=== PATIENT | male | born 1965 | race African-American/Black ===

== ENCOUNTER 2016-07-19 16:45 | Inpatient (IN) | payer OTHER ==
[2016-07-19 17:27] VITALS: BMI 23.8
--- NOTE | 2016-07-19 17:50 | HP ---
CIWA Score - CIWA Score Nausea/Vomitin-Mild Nausea/No Vomiting Muscle Tremors: 4-Moderate,w/Arms Extend Anxiety: 4-Mod. Anxious/Guarded Agitation: 4-Moderately Restless Paroxysmal Sweats: 1-Minimal Palms Moist Orientation: 1-Uncertain about Date Tacttile Disturbances: 0-None Auditory Disturbances: 1-Very Mild Visual Disturbances: 1-Very Mild Sensitivity Headache: 0-None Present CIWA-Ar Total Score: 17 Admission ROS BHS - HPI Chief Complaint: 50 years old male with long history of alcohol nicotine dependence prediabetic has schizophrenia is admitted to detox Allergies/Adverse Reactions: Allergies Allergy/AdvReac Type Severity Reaction Status Date / Time haloperidol [From Haldol] Allergy Intermediate Verified 07/19/16 17:27 haloperidol lactate Allergy Intermediate Verified 07/19/16 17:27 [From Haldol] trazodone AdvReac Verified 07/19/16 17:27 History of Present Illness: withdrawal sx Exam Limitations: No Limitations - Ebola screening Have you traveled outside of the country in the last 21 days: No Have you had contact with anyone from an Ebola affected area: No Have you been sick,other than usual withdrawal symptoms: No Do you have a fever: No - Review of Systems Constitutional: Chills, Loss of Appetite, Changes in sleep, Unexplained wgt Loss EENT: reports: No Symptoms Reported Respiratory: reports: No Symptoms reported Cardiac: reports: No Symptoms Reported GI: reports: Constipated, Nausea, Poor Appetite, Poor Fluid Intake, Abdominal cramping : reports: No Symptoms Reported Musculoskeletal: reports: No Symptoms Reported Integumentary: reports: No Symptoms Reported Neuro: reports: Tremors Endocrine: reports: No Symptoms Reported Hematology: reports: No Symptoms Reported Psychiatric: reports: Judgement Intact Other Systems: Reviewed and Negative Patient History - Patient Medical History Hx Anemia: No Hx Asthma: No Hx Chronic Obstructive Pulmonary Disease (COPD): No Hx Cancer: No Hx Cardiac Disorders: No Hx Congestive Heart Failure: No Hx Hypertension: No Hx Hypercholesterolemia: No Hx Pacemaker: No HX Cerebrovascular Accident: No Hx Seizures: No Hx Dementia: No Hx Diabetes: No Hx Gastrointestinal Disorders: No Hx Liver Disease: No Hx Genitourinary Disorders: No Hx Sexually Transmitted Disorders: No Hx Renal Disease (ESRD): No Hx Thyroid Disease: No Hx Human Immunodeficiency Virus (HIV): No Hx Hepatitis C: No Hx Depression: No Hx Suicide Attempt: Yes (tried to overdose 15 yrs ago.) Hx Bipolar Disorder: No Hx Schizophrenia: Yes (seroquel) - Patient Surgical History Past Surgical History: Yes Hx Neurologic Surgery: No Hx Cataract Extraction: No Hx Cardiac Surgery: No Hx Lung Surgery: No Hx Breast Surgery: No Hx Breast Biopsy: No Hx Abdominal Surgery: No Hx Appendectomy: No Hx Cholecystectomy: No Hx Genitourinary Surgery: No Hx Orthopedic Surgery: No Other Surgical History: left eye surgery age 7 Anesthesia Reaction: No - PPD History Previous Implant?: Yes Documented Results: Negative w/o proof Implanted On Prior R Admission?: Yes Date: 06/03/14 Results: 0mm PPD to be Administered?: Yes - Smoking Cessation Smoking history: Current every day smoker Have you smoked in the past 12 months: Yes Aproximately how many cigarettes per day: 5 Cigars Per Day: 0 Hx Chewing Tobacco Use: No Initiated information on smoking cessation: Yes 'Breaking Loose' booklet given: 07/19/16 - Substance & Tx. History Hx Alcohol Use: Yes Hx Substance Use: Yes Substance Use Type: Alcohol, Cocaine Hx Substance Use Treatment: Yes - Substances Abused Alcohol Route: Oral Frequency: Daily Amount used: 6PK MALT LIQUOR Age of first use: 15 Date of Last Use: 07/19/16 Crack Route: Smoking Frequency: Daily Amount used: $50-100 Age of first use: 19 Date of Last Use: 07/19/16 Family Disease History - Family Disease History Family Disease History: Diabetes: Father, Mother Admission Physical Exam BHS - Vital Signs Vital Signs: Vital Signs - 24 hr 07/19/16 17:26 Temperature 98.5 F Pulse Rate 73 Respiratory 20 Rate Blood Pressure 111/67 - Physical General Appearance: Yes: Appropriately Dressed, Mild Distress, Thin, Tremorous, Irritable, Sweating, Anxious HEENTM: Yes: Hearing grossly Normal, Normal ENT Inspection, Normocephalic, Normal Voice Respiratory: Yes: Chest Non-Tender, Lungs Clear, Normal Breath Sounds, No Respiratory Distress, No Accessory Muscle Use Neck: Yes: Supple, Trachea in good position Breast: Yes: Breasts Symetrical Cardiology: Yes: Regular Rhythm, Regular Rate, S1, S2 Abdominal: Yes: Non Tender, Soft Genitourinary: Yes: Within Normal Limits Back: Yes: Normal Inspection Musculoskeletal: Yes: full range of Motion, Gait Steady Extremities: Yes: Normal Range of Motion, Non-Tender, Tremors Neurological: Yes: Alert, Motor Strength 5/5, Normal Response, Depressed Affect Integumentary: Yes: Warm Lymphatic: Yes: Within Normal Limits - Diagnostic (1) Nicotine dependence Current Visit: Yes Status: Acute Qualifiers: Nicotine product type: cigarettes Substance use status: in withdrawal Qualified Code(s): F17.213 - Nicotine dependence, cigarettes, with withdrawal (2) Paranoid schizophrenia Current Visit: Yes Status: Suspected (3) Alcohol dependence with uncomplicated withdrawal Current Visit: Yes Status: Acute (4) Weight loss Current Visit: Yes Status: Acute Cleared for Admission [facility] - Detox or Rehab [facility] Level of Care: Medically Managed Detox Regimen/Protocol: Librium [facility] Breath Alcohol Content Breath Alcohol Content: 0 Urine Drug Screen - Results Drug Screen Negative: No Urine Drug Screen Results: ALEC-Cocaine
[2016-07-19] MEDS ORDERED: diphenhydrAMINE HCL 50 MG CAPSULE PO PRN (17:54)
[2016-07-19] MEDS ORDERED: IBUPROFEN 400 MG TABLET (FP) PO PRN (17:54)
[2016-07-19] MEDS ORDERED: chlordiazePOXIDE HCL 25 MG CAPSULE PO PRN (17:54)
[2016-07-19] MEDS ORDERED: hydrOXYzine PAMOATE 50 MG CAPSULE (FP) PO PRN (17:54)
[2016-07-19] MEDS ORDERED: MENTHOL/PHENOL 1 EACH UD MM PRN (17:54)
[2016-07-19] MEDS ORDERED: MAGNESIUM CITRATE 300 ML BOTTLE PO PRN (17:54)
[2016-07-19] MEDS ORDERED: LOPERAMIDE HCL 2 MG CAPSULE PO PRN (17:54)
[2016-07-19] MEDS ORDERED: MAGNESIUM HYDROX 2400MG/30ML ORAL SUSPENSION 30 ML CUP PO PRN (17:54)
[2016-07-19] MEDS ORDERED: NICOTINE POLACRILEX 2 MG GUM BC PRN (17:54)
[2016-07-19] MEDS ORDERED: guaiFENesin/D-METHORPHAN HB 10 ML UNIT-DOSE CUPS PO PRN (17:54)
[2016-07-19] MEDS ORDERED: P-EPHED 60MG/TRIPROLIDI 2.5MG TABLET PO PRN (17:54)
[2016-07-19] MEDS ORDERED: ACETAMINOPHEN 325 MG TABLET (FP) PO PRN (17:54)
[2016-07-19] MEDS ORDERED: MAG HYDROX/AL HYDROX/SIMETH 30 ML UNIT-DOSE CUP PO PRN (17:54)
[2016-07-19] MEDS ORDERED: chlordiazePOXIDE HCL 25 MG CAPSULE PO ONE (18:45)
--- NOTE | 2016-07-19 21:39 | PN ---
S Progress Note Note: ekg showed sinus bradycardia,57/min,inverted t in 2,3,avf,v4 to v6 no chest pain,no sob,no dizziness Vital Signs Temperature 98.5 F 07/19/16 17:26 Pulse Rate 73 07/19/16 17:26 Respiratory Rate 20 07/19/16 17:26 Blood Pressure 111/67 07/19/16 17:26 O2 Sat by Pulse Oximetry (%) to repeat ekg in am at 09.00 continue detox,close monitoring
[2016-07-19] MEDS: chlordiazePOXIDE HCL 25 MG CAPSULE PO SCH (22:28)
[2016-07-19] MEDS: THIAMINE HCL 100 MG TABLET (FP) PO SCH (22:28)
[2016-07-19 22:39] LABS: URINE APPEARANCE CLEAR; URINE BILIRUBIN NEGATIVE (NEGATIVE); URINE BLOOD NEGATIVE (NEGATIVE); URINE COLOR YELLOW; URINE GLUCOSE (UA) NEGATIVE (NEGATIVE); URINE KETONE TRACE (NEGATIVE); URINE NITRITE NEGATIVE (NEGATIVE); URINE UROBILINOGEN 2.0 E.U/dl E.U./dl (0.2-1.0)
[2016-07-19 22:40] LABS: URINE LEUK ESTERASE TRACE (NEGATIVE); URINE PROTEIN 1+ (NEGATIVE)
[2016-07-19 22:45] LABS: URINE BACTERIA RARE /hpf (NONE SEEN); URINE HYALINE CAST 6 /lpf; URINE MUCUS MANY; URINE RBC 1 /hpf (0-3); URINE WBC 20 /hpf (3-5)
[2016-07-20] MEDS: chlordiazePOXIDE HCL 25 MG CAPSULE PO SCH ×4 (05:19→22:11)
--- NOTE | 2016-07-20 09:23 | CONSULT ---
[facility] Psychiatric Consult - Data Date of interview: 07/20/16 Admission source: [facility] Identifying data: Readmission to [facility] for this 50 y/o AA male seeking detox treatment on for alcohol and cocaine (crack) dependence.Patient is single without children,homeless,unemployed and supported on SSI benefits. Substance Abuse History: - Smoking Cessation. Smoking history: Current every day smoker. Have you smoked in the past 12 months: Yes. Aproximately how many cigarettes per day: 5. Cigars Per Day: 0. Hx Chewing Tobacco Use: No. Initiated information on smoking cessation: Yes. 'Breaking Loose' booklet given : 07/19/16. - Substance & Tx. History. Hx Alcohol Use: Yes. Hx Substance Use : Yes. Substance Use Type: Alcohol, Cocaine. Hx Substance Use Treatment: Yes. - Substances Abused. Alcohol. Route: Oral. Frequency: Daily. Amount used: 6PK MALT LIQUOR. Age of first use: 15. Date of Last Use: 07/19/16. Crack. Route: Smoking. Frequency: Daily. Amount used: $50-100. Age of first use: 19. Date of Last Use: 07/19/16 Medical History: Patient endorses good general health.Noted report of eye surgery (at age 7). Psychiatric History: Patient is a hostile,suspicious and irritable historian." Why don't you look at my records ? Everything is in there.Will someone allow me get some sleep.I am tired of your stupid questions." Mr Smith does admit to a psychiatric history with multiple hospitalizations but he declines to expand on details.He states that he gets seroquel 50 mg twice a day.Additional information is collected from previous records.As per a new admission note from Dr Fox (07/30/14),this patient started seeing a psychiatrist by age 15 due to behavioral dyscontrol at school (a psychostimulant,ritalin,was utilized).First psychiatric hospitalization took place in 2001 at [facility] (a two-month retention) for a serious suicide attempt ([place]Mr Smith is also known to [facility] where he (at least in 2014) gets his outpatient psychiatric services.Diagnosed with paranoid schizophrenia.Noted history of Special Education (no information about grade achieved) and a family history of psychiatric illness (one aunt is reported to suffer from schizophrenia). Physical/Sexual Abuse/Trauma History: No history. Additional Comment: Urine Drug Screen Results: ALEC-Cocaine.Noted. Mental Status Exam - Mental Status Exam Alert and Oriented to: Time, Place, Person Cognitive Function: Grossly Intact Patient Appearance: Unkempt, Disheveled Mood: Angry, Hostile, Withdrawn, Irritable Affect: Mood Congruent Patient Behavior: Fatigued, Uncooperative, Guarded, Impulsive Speech Pattern: Clear Voice Loudness: Mildly Loud Thought Process: Disorganized Thought Disorder: Bizarre Hallucinations: Denies Suicidal Ideation: Denies Homicidal Ideation: Denies Insight/Judgement: Poor Sleep: Poorly, Difficulty falling asleep Appetite: Good (empty foodtray on bedside table) Muscle strength/Tone: Normal (no complaint of weakness) Gait/Station: Normal Psychiatric Findings - Problem List ([place] 1, 2,3) (1) Paranoid schizophrenia Current Visit: Yes Status: Chronic (2) Alcohol dependence with uncomplicated withdrawal Current Visit: Yes Status: Acute (3) Cocaine dependence Current Visit: Yes Status: Acute (4) Nicotine dependence Current Visit: Yes Status: Acute Qualifiers: Nicotine product type: cigarettes Substance use status: in withdrawal Qualified Code(s): F17.213 - Nicotine dependence, cigarettes, with withdrawal - Initial Treatment Plan Initial Treatment Plan: Psychoeducation is offered :patient is not receptive.Detoxification in progress.Medication : seroquel 50 mg po daily + 100 mg po hs.Brief discussion about side effects/benefits.Patient states that he is aware.Eager to get back on seroquel.Observation.
[2016-07-20 09:38] LABS: MCH 27.6 pg (25.7-33.7); MCHC 32.2 g/dl (32.0-35.9); MEAN CELL VOLUME 85.6 fl (80-96); MEAN PLT VOLUME 8.2 fl (7.5-11.1); PLATELET COUNT 234 K/MM3 (134-434); RDW 14.3 % (11.9-15.9); WHITE BLOOD COUNT 3.8 K/mm3 (4.0-10.0)
[2016-07-20 09:46] LABS: ANION GAP 8 (8-16); BILIRUBIN,TOTAL 0.3 mg/dL (0.2-1.0); CALCIUM 8.4 mg/dL (8.5-10.1); CO2 26 mmol/L (21-32); CREATININE 1.2 mg/dL (0.7-1.3); GLUCOSE,RANDOM 107 mg/dL (74-106); SGOT/AST 15 U/L (15-37); SGPT/ALT 21 U/L (12-78)
[2016-07-20 09:47] LABS: ALK PHOS 133 U/L (45-117); TOT PROT 5.8 g/dl (6.4-8.2)
[2016-07-20] MEDS ORDERED: PRENATAL VITAMINS W/ FOLIC ACID TABLET (FP) PO SCH (10:00)
[2016-07-20] MEDS ORDERED: NICOTINE 14 MG/24 HOURS TOPICAL PATCH TD SCH (10:00)
[2016-07-20] MEDS ORDERED: QUEtiapine FUMARATE 50 MG TABLET PO SCH (10:00)
[2016-07-20 10:12] LABS: HIV 1 & 2 AB NEGATIVE; HIV 1 AGp24 NEGATIVE
--- NOTE | 2016-07-20 14:56 | PN ---
S CIWA - CIWA Score Nausea/Vomitin Muscle Tremors: 3 Anxiety: 5 Agitation: 5 Paroxysmal Sweats: 2 Orientation: 0-Oriented Tacttile Disturbances: 3-Moderate Itch/Numb/Burn Auditory Disturbances: 2-Mild Harshness/Frighten Visual Disturbances: 0-None Headache: 0-None Present CIWA-Ar Total Score: 22 BHS Progress Note (SOAP) Subjective: Sweating, Anxious, Angry. Objective: PT. OBSERVED AMBULATING ON UNIT. 07/20/16 14:54 Vital Signs Temperature 98.1 F 07/20/16 10:00 Pulse Rate 64 07/20/16 10:00 Respiratory Rate 18 07/20/16 10:00 Blood Pressure 112/67 07/20/16 10:00 O2 Sat by Pulse Oximetry (%) Laboratory Last Values WBC 3.8 K/mm3 (4.0-10.0) L 07/20/16 06:20 RBC 4.68 M/mm3 (4.00-5.60) 07/20/16 06:20 Hgb 12.9 GM/dL (11.7-16.9) D 07/20/16 06:20 Hct 40.1 % (35.4-49) 07/20/16 06:20 MCV 85.6 fl (80-96) 07/20/16 06:20 MCHC 32.2 g/dl (32.0-35.9) 07/20/16 06:20 RDW 14.3 % (11.9-15.9) 07/20/16 06:20 Plt Count 234 K/MM3 (134-434) 07/20/16 06:20 MPV 8.2 fl (7.5-11.1) 07/20/16 06:20 Sodium 146 mmol/L (136-145) H 07/20/16 06:20 Potassium 3.9 mmol/L (3.5-5.1) 07/20/16 06:20 Chloride 112 mmol/L (98-107) H 07/20/16 06:20 Carbon Dioxide 26 mmol/L (21-32) 07/20/16 06:20 Anion Gap 8 (8-16) 07/20/16 06:20 BUN 16 mg/dL (7-18) 07/20/16 06:20 Creatinine 1.2 mg/dL (0.7-1.3) D 07/20/16 06:20 Creat Clearance w eGFR > 60 (>60) 07/20/16 06:20 Random Glucose 107 mg/dL (74-106) H 07/20/16 06:20 Calcium 8.4 mg/dL (8.5-10.1) L 07/20/16 06:20 Total Bilirubin 0.3 mg/dL (0.2-1.0) D 07/20/16 06:20 AST 15 U/L (15-37) D 07/20/16 06:20 ALT 21 U/L (12-78) 07/20/16 06:20 Alkaline Phosphatase 133 U/L (45-117) H D 07/20/16 06:20 Total Protein 5.8 g/dl (6.4-8.2) L D 07/20/16 06:20 Albumin 3.0 g/dl (3.4-5.0) L D 07/20/16 06:20 Urine Color Yellow 07/19/16 19:31 Urine Appearance Clear 07/19/16 19:31 Urine pH 5.0 (5.0-8.0) 07/19/16 19:31 Ur Specific [place] 1.032 (1.001-1.035) 07/19/16 19:31 Urine Protein 1+ (NEGATIVE) H 07/19/16 19:31 Urine Glucose (UA) Negative (NEGATIVE) 07/19/16 19:31 Urine Ketones Trace (NEGATIVE) H 07/19/16 19:31 Urine Blood Negative (NEGATIVE) 07/19/16 19:31 Urine Nitrite Negative (NEGATIVE) 07/19/16 19:31 Urine Bilirubin Negative (NEGATIVE) 07/19/16 19:31 Urine Urobilinogen 2.0 e.u/dl E.U./dl (0.2-1.0) 07/19/16 19:31 Ur Leukocyte Esterase Trace (NEGATIVE) H 07/19/16 19:31 Urine RBC 1 /hpf (0-3) 07/19/16 19:31 Urine WBC 20 /hpf (3-5) 07/19/16 19:31 Ur Epithelial Cells Rare /hpf (FEW) 07/19/16 19:31 Urine Bacteria Rare /hpf (NONE SEEN) 07/19/16 19:31 Hyaline Casts 6 /lpf 07/19/16 19:31 Urine Mucus Many 07/19/16 19:31 RPR Titer Nonreactive (NONREACTIVE) 07/20/16 06:20 HIV 1&2 Antibody Screen Negative 07/20/16 06:20 HIV P24 Antigen Negative 07/20/16 06:20 LABS NOTED. Assessment: 07/20/16 14:55 WITHDRAWAL SYMPTOMS. Plan: CONTINUE DETOX. ADVISED PATIENT TO FOLLOW-UP WITH IRRIGATION EQUIPMENT MECHANIC / REHAB MEDICAL PROVIDER AFTER DISCHARGE FROM DETOX FOR GENERAL MEDICAL ASSESSMENT AND FOR ABNORMAL LAB VALUES
--- NOTE | 2016-07-20 16:42 | EKG ---
Test Reason : Blood Pressure : / mmHG Vent. Rate : 050 BPM Atrial Rate : 050 BPM P-R Int : 144 ms QRS Dur : 080 ms QT Int : 432 ms P-R-T Axes : 003 -03 012 degrees QTc Int : 393 ms SINUS BRADYCARDIA MINIMAL VOLTAGE CRITERIA FOR LVH, MAY BE NORMAL VARIANT NONSPECIFIC ST AND T WAVE ABNORMALITY ABNORMAL ECG Confirmed by MD PHIL, WINNIE ([id number]) on 07/20/2016 4:42:05 PM Referred By: Confirmed By:WINNIE VILLARREAL MD
--- NOTE | 2016-07-20 16:42 | EKG ---
Test Reason : Blood Pressure : / mmHG Vent. Rate : 057 BPM Atrial Rate : 057 BPM P-R Int : 140 ms QRS Dur : 078 ms QT Int : 454 ms P-R-T Axes : 014 015 -55 degrees QTc Int : 441 ms SINUS BRADYCARDIA T WAVE ABNORMALITY, CONSIDER INFERIOR ISCHEMIA T WAVE ABNORMALITY, CONSIDER ANTEROLATERAL ISCHEMIA ABNORMAL ECG NO PREVIOUS ECGS AVAILABLE Confirmed by MD PHIL, WINNIE ([id number]) on 07/20/2016 4:42:45 PM Referred By: Confirmed By:WINNIE VILLARREAL MD
[2016-07-20] MEDS ORDERED: QUEtiapine FUMARATE 100 MG TABLET (FP) PO SCH (22:00)
[2016-07-20] MEDS: THIAMINE HCL 100 MG TABLET (FP) PO SCH (22:11)
[2016-07-21] MEDS: chlordiazePOXIDE HCL 25 MG CAPSULE PO SCH (06:35)
[2016-07-21 06:53] VITALS: BP 101/54; PULSE 65; TEMP 96.8
--- NOTE | 2016-07-21 10:55 | DS ---
[facility] Detox Discharge Summary Admission Date: 07/19/16 Discharge Date: 07/21/16 - History Present History: Alcohol Dependence, Cocaine Dependence Pertinent Past History: paranoid schizophrenia - Physical Exam Results Vital Signs: Vital Signs Temperature 96.8 F L 07/21/16 06:00 Pulse Rate 65 07/21/16 06:00 Respiratory Rate 16 07/21/16 06:00 Blood Pressure 101/54 07/21/16 06:00 O2 Sat by Pulse Oximetry (%) Pertinent Admission Physical Exam Findings: withdrawal sx Laboratory Last Values WBC 3.8 K/mm3 (4.0-10.0) L 07/20/16 06:20 RBC 4.68 M/mm3 (4.00-5.60) 07/20/16 06:20 Hgb 12.9 GM/dL (11.7-16.9) D 07/20/16 06:20 Hct 40.1 % (35.4-49) 07/20/16 06:20 MCV 85.6 fl (80-96) 07/20/16 06:20 MCHC 32.2 g/dl (32.0-35.9) 07/20/16 06:20 RDW 14.3 % (11.9-15.9) 07/20/16 06:20 Plt Count 234 K/MM3 (134-434) 07/20/16 06:20 MPV 8.2 fl (7.5-11.1) 07/20/16 06:20 Sodium 146 mmol/L (136-145) H 07/20/16 06:20 Potassium 3.9 mmol/L (3.5-5.1) 07/20/16 06:20 Chloride 112 mmol/L (98-107) H 07/20/16 06:20 Carbon Dioxide 26 mmol/L (21-32) 07/20/16 06:20 Anion Gap 8 (8-16) 07/20/16 06:20 BUN 16 mg/dL (7-18) 07/20/16 06:20 Creatinine 1.2 mg/dL (0.7-1.3) D 07/20/16 06:20 Creat Clearance w eGFR > 60 (>60) 07/20/16 06:20 Random Glucose 107 mg/dL (74-106) H 07/20/16 06:20 Calcium 8.4 mg/dL (8.5-10.1) L 07/20/16 06:20 Total Bilirubin 0.3 mg/dL (0.2-1.0) D 07/20/16 06:20 AST 15 U/L (15-37) D 07/20/16 06:20 ALT 21 U/L (12-78) 07/20/16 06:20 Alkaline Phosphatase 133 U/L (45-117) H D 07/20/16 06:20 Total Protein 5.8 g/dl (6.4-8.2) L D 07/20/16 06:20 Albumin 3.0 g/dl (3.4-5.0) L D 07/20/16 06:20 Urine Color Yellow 07/19/16 19:31 Urine Appearance Clear 07/19/16 19:31 Urine pH 5.0 (5.0-8.0) 07/19/16 19:31 Ur Specific [place] 1.032 (1.001-1.035) 07/19/16 19:31 Urine Protein 1+ (NEGATIVE) H 07/19/16 19:31 Urine Glucose (UA) Negative (NEGATIVE) 07/19/16 19:31 Urine Ketones Trace (NEGATIVE) H 07/19/16 19:31 Urine Blood Negative (NEGATIVE) 07/19/16 19:31 Urine Nitrite Negative (NEGATIVE) 07/19/16 19:31 Urine Bilirubin Negative (NEGATIVE) 07/19/16 19:31 Urine Urobilinogen 2.0 e.u/dl E.U./dl (0.2-1.0) 07/19/16 19:31 Ur Leukocyte Esterase Trace (NEGATIVE) H 07/19/16 19:31 Urine RBC 1 /hpf (0-3) 07/19/16 19:31 Urine WBC 20 /hpf (3-5) 07/19/16 19:31 Ur Epithelial Cells Rare /hpf (FEW) 07/19/16 19:31 Urine Bacteria Rare /hpf (NONE SEEN) 07/19/16 19:31 Hyaline Casts 6 /lpf 07/19/16 19:31 Urine Mucus Many 07/19/16 19:31 RPR Titer Nonreactive (NONREACTIVE) 07/20/16 06:20 Hepatitis C Antibody <0.1 s/co ratio (0.0-0.9) 07/20/16 06:20 HIV 1&2 Antibody Screen Negative 07/20/16 06:20 HIV P24 Antigen Negative 07/20/16 06:20 Labs noted - Medication Discharge Medications: Ambulatory Orders Quetiapine Fumarate [Seroquel -] 50 mg PO BID #100 tablet 08/23/14 Quetiapine Fumarate [Seroquel -] 50 mg PO BID #60 tablet 07/20/16 - Diagnosis (1) Alcohol dependence with uncomplicated withdrawal Status: Acute (2) Cocaine dependence Status: Acute Qualifiers: Substance use status: uncomplicated Qualified Code(s): F14.20 - Cocaine dependence, uncomplicated (3) Nicotine dependence Status: Acute Qualifiers: Nicotine product type: cigarettes Substance use status: uncomplicated Qualified Code(s): F17.210 - Nicotine dependence, cigarettes, uncomplicated (4) Paranoid schizophrenia Status: Chronic (5) Depression Status: Acute Qualifiers: Depression Type: major depressive disorder Major depression recurrence : recurrent Psychotic features: without psychotic features - AMA Did Patient Leave Against Medical Advice: (Patient with aggressive behavior, d/ c'd for non-compliance w/ facility [facility])
--- NOTE | 2016-07-21 10:56 | PN ---
S Progress Note Note: Patient discharged due to non-compliance with facility rules and regulations by demonstrating aggressive behavior
[2016-07-21] MEDS ORDERED: chlordiazePOXIDE 5 MG CAPSULE PO SCH (23:00)
[2016-07-22] MEDS ORDERED: chlordiazePOXIDE HCL 10 MG CAPSULE PO SCH (23:00)
== END 2016-07-21 08:45 | disposition home or self-care (01) | DRG 774 ==
LOC: YASAS 16:45 → Y6N 18:18
PROVIDERS: ADMIT Internal Medicine Addiction Medicine; ATTEND Internal Medicine Addiction Medicine
PROC: HZ2ZZZZ Detoxification Services for Substance Abuse Treatment (ICD-10-PCS; principal; 2016-07-19)
DX: F10.230 Alcohol dependence with withdrawal, uncomplicated (principal); F14.20 Cocaine dependence, uncomplicated; F17.210 Nicotine dependence, cigarettes, uncomplicated; F20.0 Paranoid schizophrenia; F33.9 Major depressive disorder, recurrent, unspecified; Z91.19 Patient's noncompliance with other medical treatment and regimen; Z87.898 Personal history of other specified conditions; Z91.5 Personal history of self-harm; F91.8 Other conduct disorders
CPT/HCPCS: 36415; 80053; 81003; 81015; 85027; 86593; 87389; 93005; 93010